=== PATIENT | female | born 1975 | race Caucasian/White ===

== ENCOUNTER 2016-10-05 20:26 | Inpatient (IN) | payer MEDICAID ==
[~2016-10-05] VITALS: Ht 165.1 cm; Wt 104.3 kg
[2016-10-05] MEDS ORDERED: METHYLPRED SOD SUCC 125 MG/2 ML VIAL ONE (23:19)
[2016-10-05] MEDS ORDERED: DIPHENHYDRAMINE 50 MG/ML VIAL ONE (23:19)
[2016-10-05] MEDS ORDERED: DILAUDID 1 MG/ML AMP ONE (23:19)
[2016-10-06] VITALS (7 sets, daily range): BP systolic 119–151; RESP 18–20; TEMP 98–98.6; Ht 165.1 cm; Wt 104.3 kg
[2016-10-06] MEDS ORDERED: SODIUM CHLORIDE 0.9% 50 ML IV ONE (01:29)
[2016-10-06] MEDS ORDERED: PROMETHAZINE 25 MG/ML VIAL ONE (01:29)
[2016-10-06] MEDS ORDERED: DILAUDID 1 MG/ML AMP ONE (02:18)
[2016-10-06] MEDS ORDERED: SALINE FLUSH 10 ML FLUSH PRN (02:35)
[2016-10-06] MEDS: METHYLPRED SOD SUCC 40 MG VIAL IV SCH ×4 (02:35→23:37)
[2016-10-06] MEDS ORDERED: ONDANSETRON 4 MG VIAL IV PRN (02:35)
[2016-10-06] MEDS: DUONEB INH SCH ×7 (05:16→23:29)
[2016-10-06] MEDS ORDERED: Flu Vaccine Quadrivalent 60 MCG/0.5 ML IM.VACC ONE (05:35)
[2016-10-06] MEDS: SODIUM CHLORIDE 0.9% FLUSH BAG 500 ML IV SCH (05:38)
[2016-10-06] MEDS ORDERED: DEXTROSE 50% SYRINGE 50 ML IV PRN (06:00)
[2016-10-06] MEDS ORDERED: GLUCAGON 1 MG VIAL IM PRN (06:00)
[2016-10-06] MEDS: PROMETHAZINE 25 MG/ML VIAL IV PRN ×3 (06:26→19:37)
[2016-10-06] MEDS: DIPHENHYDRAMINE 50 MG/ML VIAL IV PRN ×3 (06:26→19:33)
[2016-10-06] MEDS: SALINE FLUSH 10 ML FLUSH SCH ×2 (08:00→19:28)
[2016-10-06] MEDS: LEVOFLOXACIN 750 MG/150 ML 150 ML IV SCH (08:49)
[2016-10-06] MEDS: DILAUDID 1 MG/ML AMP IV PRN ×4 (10:58→23:37)
[2016-10-06] MEDS ORDERED: MISSING DOSE XX ONE (18:15)
[2016-10-06] MEDS: DULoxetine 30 MG CAP PO SCH (19:55)
[2016-10-06] MEDS: TOPIRAMATE 25 MG TAB PO SCH (19:55)
[2016-10-06] MEDS: SODIUM CHLORIDE 0.9% 1,000 ML IV SCH (20:35)
[2016-10-07] MEDS: DIPHENHYDRAMINE 50 MG/ML VIAL IV PRN ×2 (01:53→08:29)
[2016-10-07] MEDS: PROMETHAZINE 25 MG/ML VIAL IV PRN ×2 (01:58→08:29)
[2016-10-07] MEDS: DUONEB INH SCH ×6 (02:46→23:00)
[2016-10-07] MEDS: DILAUDID 1 MG/ML AMP IV PRN ×7 (02:55→23:32)
[2016-10-07] MEDS: SODIUM CHLORIDE 0.9% FLUSH BAG 500 ML IV SCH (05:07)
[2016-10-07] MEDS: SODIUM CHLORIDE 0.9% 1,000 ML IV SCH ×2 (06:34→20:50)
[2016-10-07 07:44] VITALS: BP_SYST 113; RESP 18; TEMP 97.9
[2016-10-07] MEDS: SALINE FLUSH 10 ML FLUSH SCH ×2 (08:00→20:36)
[2016-10-07] MEDS: METHYLPRED SOD SUCC 40 MG VIAL IV SCH ×2 (08:32→16:23)
[2016-10-07] MEDS: LEVOFLOXACIN 750 MG/150 ML 150 ML IV SCH (09:03)
[2016-10-07] MEDS ORDERED: DUONEB INH PRN (11:15)
[2016-10-07 11:44] VITALS: BP_SYST 134; RESP 20; TEMP 97.5
[2016-10-07] MEDS: NEB-BROVANA 15 MCG/2 ML INH SCH ×2 (12:18→17:24)
[2016-10-07] MEDS: PHENAZOPYRIDINE 100 MG TAB PO SCH ×3 (13:03→20:37)
[2016-10-07] MEDS: Furosemide 20 MG TAB PO SCH (13:04)
[2016-10-07 15:35] VITALS: BP_SYST 132; RESP 18; TEMP 97.8
[2016-10-07] MEDS: ALPRAZOLAM 0.25 MG TAB PO SCH ×2 (16:23→23:31)
[2016-10-07] MEDS: hydrOXYzine 25 MG TAB PO PRN (16:24)
[2016-10-07 19:06] VITALS: BP_SYST 101; RESP 18; TEMP 98.3
[2016-10-07] MEDS: DULoxetine 30 MG CAP PO SCH (20:36)
[2016-10-07] MEDS: TOPIRAMATE 25 MG TAB PO SCH (20:36)
[2016-10-07] MEDS: DIPHENHYDRAMINE 50 MG CAP PO PRN (20:37)
[2016-10-07 22:27] VITALS: BP_SYST 137; RESP 20; TEMP 98.1
[2016-10-08] VITALS (10 sets, daily range): BP systolic 119–153; RESP 16–18; TEMP 97.5–98.4
[2016-10-08] MEDS: METHYLPRED SOD SUCC 40 MG VIAL IV SCH ×3 (00:07→16:47)
[2016-10-08] MEDS: DILAUDID 1 MG/ML AMP IV PRN ×7 (02:52→22:46)
[2016-10-08] MEDS: DUONEB INH SCH ×5 (02:55→22:43)
[2016-10-08] MEDS: PROMETHAZINE 25 MG/ML VIAL IV PRN ×2 (03:37→20:01)
[2016-10-08] MEDS: SODIUM CHLORIDE 0.9% FLUSH BAG 500 ML IV SCH (05:08)
[2016-10-08] MEDS: SODIUM CHLORIDE 0.9% 1,000 ML IV SCH ×2 (06:38→19:51)
[2016-10-08] MEDS: hydrOXYzine 25 MG TAB PO PRN ×2 (06:38→16:47)
[2016-10-08] MEDS: NEB-BROVANA 15 MCG/2 ML INH SCH ×2 (07:00→19:00)
[2016-10-08] MEDS: LEVOFLOXACIN 750 MG/150 ML 150 ML IV SCH (09:44)
[2016-10-08] MEDS: ALPRAZOLAM 0.25 MG TAB PO SCH ×3 (09:45→21:53)
[2016-10-08] MEDS: PHENAZOPYRIDINE 100 MG TAB PO SCH ×3 (09:46→21:53)
[2016-10-08] MEDS: SALINE FLUSH 10 ML FLUSH SCH ×2 (09:46→19:54)
[2016-10-08] MEDS: DIPHENHYDRAMINE 50 MG CAP PO PRN (09:46)
[2016-10-08] MEDS: Furosemide 20 MG TAB PO SCH (09:47)
[2016-10-08] MEDS: DULoxetine 30 MG CAP PO SCH (21:53)
[2016-10-08] MEDS: TOPIRAMATE 25 MG TAB PO SCH (21:53)
[2016-10-08] MEDS ORDERED: TRAZODONE 50 MG TAB PO ONE (22:25)
[2016-10-09] VITALS (11 sets, daily range): BP systolic 119–149; RESP 18–20; TEMP 97.1–97.9
[2016-10-09] MEDS: METHYLPRED SOD SUCC 40 MG VIAL IV SCH ×3 (00:33→16:45)
[2016-10-09] MEDS: DILAUDID 1 MG/ML AMP IV PRN ×7 (01:44→21:34)
[2016-10-09] MEDS: DIPHENHYDRAMINE 50 MG CAP PO PRN ×4 (01:53→23:36)
[2016-10-09] MEDS: DUONEB INH SCH ×6 (03:00→22:42)
[2016-10-09] MEDS: SODIUM CHLORIDE 0.9% FLUSH BAG 500 ML IV SCH (05:12)
[2016-10-09] MEDS: NEB-BROVANA 15 MCG/2 ML INH SCH ×2 (06:37→19:00)
[2016-10-09] MEDS: SODIUM CHLORIDE 0.9% 1,000 ML IV SCH ×2 (06:54→18:01)
[2016-10-09] MEDS: hydrOXYzine 25 MG TAB PO PRN ×2 (07:10→17:24)
[2016-10-09] MEDS: PROMETHAZINE 25 MG/ML VIAL IV PRN ×3 (07:10→19:10)
[2016-10-09] MEDS: SALINE FLUSH 10 ML FLUSH SCH ×2 (07:46→21:08)
[2016-10-09] MEDS ORDERED: MISSING DOSE XX ONE ×2 (09:40→16:15)
[2016-10-09] MEDS: Furosemide 20 MG TAB PO SCH (09:41)
[2016-10-09] MEDS: LEVOFLOXACIN 750 MG/150 ML 150 ML IV SCH (09:41)
[2016-10-09] MEDS: PHENAZOPYRIDINE 100 MG TAB PO SCH (09:41)
[2016-10-09] MEDS: ALPRAZOLAM 0.25 MG TAB PO SCH ×3 (09:41→21:18)
[2016-10-09] MEDS ORDERED: BISACODYL EC 5 MG TAB PO PRN (11:15)
[2016-10-09] MEDS: DULoxetine 30 MG CAP PO SCH (21:18)
[2016-10-09] MEDS: TOPIRAMATE 25 MG TAB PO SCH (21:18)
[2016-10-10] VITALS (8 sets, daily range): BP systolic 127–151; RESP 16–18; TEMP 97.4–98
[2016-10-10] MEDS ORDERED: TRAZODONE 50 MG TAB PO ONE (00:30)
[2016-10-10] MEDS: METHYLPRED SOD SUCC 40 MG VIAL IV SCH ×2 (00:34→09:12)
[2016-10-10] MEDS: DILAUDID 1 MG/ML AMP IV PRN ×6 (00:42→20:49)
[2016-10-10] MEDS: PROMETHAZINE 25 MG/ML VIAL IV PRN ×4 (01:45→18:07)
[2016-10-10] MEDS: DUONEB INH SCH ×6 (02:11→22:41)
[2016-10-10] MEDS ORDERED: MISSING DOSE XX ONE ×3 (02:20→07:10)
[2016-10-10] MEDS: hydrOXYzine 25 MG TAB PO PRN (04:48)
[2016-10-10] MEDS: SODIUM CHLORIDE 0.9% 1,000 ML IV SCH ×2 (05:10→16:28)
[2016-10-10] MEDS: SODIUM CHLORIDE 0.9% FLUSH BAG 500 ML IV SCH (06:00)
[2016-10-10] MEDS: NEB-BROVANA 15 MCG/2 ML INH SCH ×2 (07:00→17:34)
[2016-10-10] MEDS: DIPHENHYDRAMINE 50 MG/ML VIAL IV PRN ×3 (07:09→19:18)
[2016-10-10] MEDS: SALINE FLUSH 10 ML FLUSH SCH ×2 (07:15→20:56)
[2016-10-10] MEDS: Furosemide 20 MG TAB PO SCH (09:12)
[2016-10-10] MEDS: ALPRAZOLAM 0.25 MG TAB PO SCH (09:12)
[2016-10-10] MEDS: LEVOFLOXACIN 750 MG/150 ML 150 ML IV SCH (09:13)
[2016-10-10] MEDS: ENOXAPARIN 40 MG/0.4 ML SYR SUBQ SCH (09:14)
[2016-10-10] MEDS ORDERED: DILAUDID 1 MG/ML AMP ONE (11:18)
[2016-10-10] MEDS: LEVEMIR INSULIN SUBQ SCH (13:07)
[2016-10-10] MEDS: LORAZEPAM 2 MG/ML VIAL IV PRN ×2 (16:40→22:25)
[2016-10-10] MEDS: TOPIRAMATE 25 MG TAB PO SCH (21:21)
[2016-10-10] MEDS: PREDNISONE 20 MG TAB PO SCH (21:21)
[2016-10-10] MEDS: DULoxetine 30 MG CAP PO SCH (21:22)
[2016-10-11] MEDS: DILAUDID 1 MG/ML AMP IV PRN ×2 (01:41→08:04)
[2016-10-11] MEDS: PROMETHAZINE 25 MG/ML VIAL IV PRN ×4 (02:05→22:16)
[2016-10-11] MEDS: SODIUM CHLORIDE 0.9% 1,000 ML IV SCH (02:13)
[2016-10-11] MEDS: DUONEB INH SCH ×6 (02:49→23:00)
[2016-10-11] MEDS: LORAZEPAM 2 MG/ML VIAL IV PRN ×2 (03:27→09:51)
[2016-10-11 04:13] VITALS: BP_SYST 142; RESP 18; TEMP 98.1
[2016-10-11] MEDS: DIPHENHYDRAMINE 50 MG/ML VIAL IV PRN ×3 (04:38→18:39)
[2016-10-11] MEDS: NEB-BROVANA 15 MCG/2 ML INH SCH (05:03)
[2016-10-11] MEDS: SODIUM CHLORIDE 0.9% FLUSH BAG 500 ML IV SCH (06:00)
[2016-10-11 07:15] VITALS: BP_SYST 136; RESP 20; TEMP 97.7
[2016-10-11] MEDS: SALINE FLUSH 10 ML FLUSH SCH ×2 (08:04→22:26)
[2016-10-11] MEDS: ENOXAPARIN 40 MG/0.4 ML SYR SUBQ SCH (08:47)
[2016-10-11] MEDS: LEVEMIR INSULIN SUBQ SCH (08:47)
[2016-10-11] MEDS: Furosemide 20 MG TAB PO SCH (08:48)
[2016-10-11] MEDS: PREDNISONE 20 MG TAB PO SCH ×2 (08:48→20:42)
[2016-10-11] MEDS: LEVOFLOXACIN 750 MG/150 ML 150 ML IV SCH (08:48)
[2016-10-11 10:44] VITALS: BP_SYST 144; RESP 20
[2016-10-11] MEDS: ALPRAZOLAM 0.25 MG TAB PO SCH ×3 (12:45→20:43)
[2016-10-11] MEDS: hydrOXYzine 25 MG TAB PO PRN (14:06)
[2016-10-11] MEDS: DILAUDID 2 MG TAB PO PRN ×2 (16:13→20:43)
[2016-10-11 16:26] VITALS: BP_SYST 135; RESP 20; TEMP 98.3
[2016-10-11 19:18] VITALS: BP_SYST 133; RESP 18; TEMP 98.4
[2016-10-11] MEDS ORDERED: MISSING DOSE XX ONE (20:25)
[2016-10-11] MEDS: TOPIRAMATE 25 MG TAB PO SCH (20:42)
[2016-10-11] MEDS: DULoxetine 30 MG CAP PO SCH (20:43)
[2016-10-12 01:50] VITALS: BP_SYST 132; RESP 18; TEMP 97.7
[2016-10-12] MEDS: PROMETHAZINE 25 MG/ML VIAL IV PRN (02:32)
[2016-10-12] MEDS: DUONEB INH SCH ×3 (03:00→10:22)
[2016-10-12] MEDS: DILAUDID 2 MG TAB PO PRN ×2 (04:59→09:47)
[2016-10-12] MEDS: SODIUM CHLORIDE 0.9% FLUSH BAG 500 ML IV SCH (05:00)
[2016-10-12 07:39] VITALS: BP_SYST 116; RESP 18; TEMP 97.8
[2016-10-12] MEDS: SALINE FLUSH 10 ML FLUSH SCH (08:32)
[2016-10-12] MEDS: LEVEMIR INSULIN SUBQ SCH (08:33)
[2016-10-12] MEDS: DIPHENHYDRAMINE 50 MG CAP PO PRN (08:34)
[2016-10-12] MEDS: PREDNISONE 20 MG TAB PO SCH (08:34)
[2016-10-12] MEDS: Furosemide 20 MG TAB PO SCH (08:34)
[2016-10-12] MEDS: ALPRAZOLAM 0.25 MG TAB PO SCH (08:34)
[2016-10-12] MEDS: LEVOFLOXACIN 750 MG/150 ML 150 ML IV SCH (08:36)
[2016-10-12] MEDS: ENOXAPARIN 40 MG/0.4 ML SYR SUBQ SCH (08:36)
[2016-10-12 10:04] VITALS: BP_SYST 116; RESP 18; TEMP 97.8
== END 2016-10-12 11:04 | disposition home or self-care (01) | DRG 596 ==
LOC: ENRESERVTM → ENRESERVDT → ER 20:26 → EMR 20:27 → OBSVTOIN 20:27 → ENPENDDIS 20:27 → UNDOADMOB 10-06 02:31 → EMR 10-06 02:31 → 4NT 10-06 04:54 → OBSVTOIN 10-07 11:11 → INTOOBSV 10-07 11:11
PROVIDERS: ADMIT Internal Medicine; ATTEND Internal Medicine
CPT/HCPCS: 36415; 71020; 74000; 80053; 81001; 82553; 82947; 83605; 83735; 84484; 84703; 85025; 85610; 85730; 87040; 87088; 93005; 94640; 94799; 96374; 96375; 96376; 99219; 99232; 99233; 99239

== ENCOUNTER 2016-10-29 16:53 | Emergency (ER) | payer MEDICAID ==
[2016-10-29] MEDS ORDERED: SODIUM CHLORIDE 0.9% 1,000 ML ONE (18:44)
[2016-10-29] MEDS ORDERED: KETOROLAC 30 MG/ML VIAL ONE (18:44)
[2016-10-29] MEDS ORDERED: DIPHENHYDRAMINE 50 MG/ML VIAL ONE (18:45)
[2016-10-29] MEDS ORDERED: PROMETHAZINE 25 MG/ML VIAL ONE (18:46)
[2016-10-29] MEDS ORDERED: SODIUM CHLORIDE 0.9% 50 ML IV ONE (18:46)
[2016-10-29] MEDS ORDERED: ACETAMINOPHEN 325 MG TAB ONE (19:38)
== END 2016-10-29 21:05 | disposition home or self-care (01) ==
LOC: ER 16:53
DX: E11.65 Type 2 diabetes mellitus with hyperglycemia (principal); M32.9 Systemic lupus erythematosus, unspecified
CPT/HCPCS: 36415; 71010; 80053; 82553; 82947; 83880; 84484; 85025; 93005; 96361; 96365; 96375